=== PATIENT | male | born 2000 | race Caucasian/White ===

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

== ENCOUNTER 2020-05-13 19:27 | Emergency (ER) | payer BC ==
[~2020-05-13] VITALS: Ht 177.8 cm; Wt 68.2 kg
[2020-05-13 19:31] VITALS: TEMP 98.6
[2020-05-13] MEDS ORDERED: AMOXICILLIN 50500 MG PO (19:54)
[2020-05-13] MEDS ORDERED: MOTRIN 800800 MG/TAB PO (19:54)
[2020-05-13] MEDS ORDERED: FLEXERIL 1010 MG/TAB PO (19:54)
[2020-05-13 20:35] VITALS: BP 119/71; PULSE 89
== END 2020-05-13 20:35 | disposition home or self-care (01) ==
LOC: COL.ER 19:27
DX: M26.621 Arthralgia of right temporomandibular joint (principal)

== ENCOUNTER 2021-05-30 06:10 | Emergency (ER) | payer BC ==
[~2021-05-30] VITALS: Ht 177.8 cm; Wt 72.7 kg
[~2021-05-30 06:10] MED LIST: AMOXICILLIN 50500 MG PO; FLEXERIL 1010 MG/TAB PO; MOTRIN 800800 MG/TAB PO
[2021-05-30 06:11] VITALS: BP 139/86; TEMP 97.5
[2021-05-30] MEDS ORDERED: CEPHALEXIN500 M1 PO (06:59)
[2021-05-30 08:29] VITALS: PULSE 113
== END 2021-05-30 09:29 | disposition home or self-care (01) ==
LOC: COL.ER 06:10
DX: S91.311A Laceration without foreign body, right foot, initial encounter (principal); W26.8XXA Contact with other sharp object(s), not elsewhere classified, initial encounter; Y93.84 Activity, sleeping